=== PATIENT | female | born 1960 | race Caucasian/White ===

== ENCOUNTER 2017-03-20 16:28 | Emergency (ER) | payer BC, OTHER ==
[2017-03-20 16:37] VITALS: BP 124/78; PULSE 65; RESP 12; O2SAT 99
[2017-03-20] MEDS ORDERED: ACETAMINOPHEN/HYDROcodone 325 MG/10 MG TAB PO ONE (17:15)
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
[2017-03-20] MEDS ORDERED: OXYC-395 PO (17:43)
--- NOTE | 2017-03-20 19:31 | PD ---
Physical Exam Date Seen by Provider: Mar 20, 2017 Time Seen by Provider: 19:29 Data Data Last Documented VS Vital Signs Date Time Temp Pulse Resp B/P (MAP) Pulse Ox O2 Delivery O2 Flow Rate FiO2 03/20/17 16:37 65 12 124/78 (93) 99 Orders Orders Acetamin-Hydrocod 325-10 Mg ([place] 10-32 (03/20/17 17:15) Elbow, Complete (4 Vws) (03/20/17 ) Forearm (2vws) (03/20/17 ) Hand, Complete (Ydj1rit) (03/20/17 ) Ice/Cold Pack (03/20/17 19:26) Splint Or Brace Apply/Monitor (03/20/17 19:26) Ed Discharge Order (03/20/17 19:27) MDM Medical Record Reviewed: Yes Supervised Visit with TERRIE: No Interpretation(s) Left elbow: Negative for acute fracture. Left forearm: Negative for acute fracture. Left hand: Negative for acute fractures. Patient has what appears to be a possible old radial styloid fracture. Differential Diagnosis MDM: High Differential diagnoses: Fracture, sprain, strain, dislocation, contusion, neurovascular injury Narrative Course X-rays are negative for acute bony injury. Patient's given additional hydrocodone here in the ER. Patient is placed in a sling for comfort. Ice pack applied. Patient already takes oxycodone 10 mg up to 4-5 times a day for pain. She is encouraged to continue her pain medications. This is arm sprain Diagnosis Primary Impression: Sprain of left upper arm Qualified Codes: S43.402A - Unspecified sprain of left shoulder joint, initial encounter Referrals: Primary Care Physician Patient Instructions: General Instructions, Narcotic given in the ED Additional Instruction: Rest. Elevation. Sling. Ice for the next few days. Continue your pain medications. Contact her doctor for further pain control. Contact her doctor tomorrow morning for appointment first thing Monday get back in 1 week. Return to the ER for problems. Med/Other Pt SpecificInfo: No Change to Meds Disposition: 01 DISCHARGE HOME Condition: Stable Abhishek Dallas Mar 20, 2017 19:31
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
== END 2017-03-20 19:47 | disposition home or self-care (01) ==
LOC: NEPK 16:28
DX: S43.402A Unspecified sprain of left shoulder joint, initial encounter (principal); S80.02XA Contusion of left knee, initial encounter; M25.522 Pain in left elbow; M25.532 Pain in left wrist; V18.4XXA Pedal cycle driver injured in noncollision transport accident in traffic accident, initial encounter; Z88.6 Allergy status to analgesic agent
CPT/HCPCS: 73080; 73090; 73130; 99283